=== PATIENT | male | born 1955 | race Caucasian/White ===

== ENCOUNTER → 2016-09-17 | Day surgery (SDC) | payer MEDICARE, OTHER ==
[~2016-09-17] MED LIST: ASPIR 8181 MG PO; COLCRYS0.6 MG PO; COUMADIN10 MG PO; COZAAR50 MG PO; FISH OIL 1,0001 EAC1 PO; HUMULIN R500 UNIT/1 SQ; LASIX40 MG PO; LIPITOR10 MG PO; LOPRESSOR100 MG PO; NEURONTIN300 MG PO; ZYLOPRIM300 MG PO
== END | disposition home or self-care (01) ==
LOC: SDC 07:12
DX: H26.8 Other specified cataract (principal); E11.9 Type 2 diabetes mellitus without complications; I10 Essential (primary) hypertension; J44.9 Chronic obstructive pulmonary disease, unspecified; G47.30 Sleep apnea, unspecified; M10.9 Gout, unspecified; I25.10 Atherosclerotic heart disease of native coronary artery without angina pectoris; I73.9 Peripheral vascular disease, unspecified; I25.2 Old myocardial infarction; Z79.4 Long term (current) use of insulin; Z79.82 Long term (current) use of aspirin; Z79.899 Other long term (current) drug therapy; Z87.19 Personal history of other diseases of the digestive system
CPT/HCPCS: C1780; J0171; J1100; J1580; J2704; J2765